=== PATIENT | female | born 2000 | race Caucasian/White ===

== ENCOUNTER 2018-08-01 05:16 | Emergency (ER) | payer OTHER ==
[~2018-08-01] VITALS: Ht 167.6 cm; Wt 71.4 kg
[~2018-08-01 05:16] MED LIST: D-ME118S6 PO; RTPRO NEB
[2018-08-01 05:19] VITALS: Ht 167.6 cm; Wt 71.4 kg
[2018-08-01] MEDS ORDERED: morphine 4 MG/ML VIAL IV STA ×2 (05:33→11:03)
[2018-08-01] MEDS ORDERED: ONDANSETRON 4 MG INJ IV STA (05:33)
--- NOTE | 2018-08-01 05:33 | ERD ---
ER Documentation Chief Complaint Chief Complaint C/O RLQ AP W/ NAUSEA SINCE 1AM HPI This is a 18-year-old female presents to the emergency department with complaints of right lower abdominal pain that started at 1 AM. Stated that this woke her up. Pain was described as sharp. Also complains of nausea without vomiting. Also complains of difficulty walking due to pain. Her last bowel movement was yesterday and it was normal. LMP: 07/15/2018. . Denies headache, head injury, loss of consciousness, dizziness, neck pain, neck stiffness, throat pain, difficulty swallowing, difficulty breathing lying flat, shoulder pain, chest pain, back pain, vomiting, constipation, diarrhea, urinary symptoms, or possibility being , loss of bowel and bladder control, trauma, injury, falls, difficulty walking due to pain, numbness or tingling sensation, calf pain, recent travel, recent major surgery in the last 3 weeks, calf pain, recent long travel, recent exposure to any illness, recent antibiotic use in the last 3 months, fever, chills, seizures. Past medical history: Surgical history: Social: Denies smoking, use of alcoholic beverages, use of illegal drugs. ROS All systems reviewed and are negative except as per history of present illness. Allergies Allergies: Coded Allergies: No Known Allergy (Unverified , 08/01/18) Physical Exam Vitals Vital Signs Date Temp Pulse Resp B/P (MAP) Pulse Ox O2 O2 Flow FiO2 Time Delivery Rate 08/01/18 98.3 90 18 113/71 100 Room Air 09:56 (85) Physical Exam Const: No acute distress Head: Atraumatic Eyes: Normal Conjunctiva ENT: Normal External Ears, Nose and Mouth. Neck: Full range of motion. No meningismus. Resp: Clear to auscultation bilaterally Cardio: Regular rate and rhythm, no murmurs Abd: Soft, non tender, non distended. Normal bowel sounds. Negative Iverson sign. Has right lower abdominal tenderness. Has rebound tenderness to the right lower quadrant. Positive psoas sign. Developed right lower abdominal pain after jumping twice. No CVA tenderness. Difficulty walking due to pain. Skin: No petechiae or rashes. No skin tenting. No signs of severe dehydration. Back: No midline or flank tenderness Ext: No cyanosis, or edema Neur: Awake and alert. No neurological deficits. Psych: Normal Mood and Affect Result Diagram: 3/22/19 0600 08/01/18 0600 Results 24 hrs Laboratory Tests Test 08/01/18 06:00 08/01/18 06:24 White Blood Count 15.1 10^3/ul Red Blood Count 4.18 10^6/ul Hemoglobin 10.7 g/dl Hematocrit 34.5 % Mean Corpuscular Volume 82.5 fl Mean Corpuscular Hemoglobin 25.6 pg Mean Corpuscular Hemoglobin Concent 31.0 g/dl Red Cell Distribution Width 14.1 % Platelet Count 232 10^3/UL Mean Platelet Volume 10.5 fl Immature Granulocytes % 0.400 % Neutrophils % 79.5 % Lymphocytes % 9.9 % Monocytes % 9.7 % Eosinophils % 0.2 % Basophils % 0.3 % Nucleated Red Blood Cells % 0.0 /100WBC Immature Granulocytes # 0.060 10^3/ul Neutrophils # 12.0 10^3/ul Lymphocytes # 1.5 10^3/ul Monocytes # 1.5 10^3/ul Eosinophils # 0.0 10^3/ul Basophils # 0.0 10^3/ul Nucleated Red Blood Cells # 0.0 10^3/ul Urine Color YELLOW Urine Clarity CLOUDY Urine pH 5.0 Urine Specific Lydia 1.028 Urine Ketones 1+ mg/dL Urine Nitrite NEGATIVE mg/dL Urine Bilirubin NEGATIVE mg/dL Urine Urobilinogen NEGATIVE mg/dL Urine Leukocyte Esterase 1+ Bryan/ul Urine Microscopic RBC 4 /HPF Urine Microscopic WBC 6 /HPF Urine Squamous Epithelial Cells MANY /HPF Urine Bacteria FEW /HPF Urine Mucus FEW /HPF Urine Hemoglobin NEGATIVE mg/dL Urine Glucose NEGATIVE mg/dL Urine Total Protein NEGATIVE mg/dl Sodium Level 140 mmol/L Potassium Level 3.9 mmol/L Chloride Level 105 mmol/L Carbon Dioxide Level 21 mmol/L Anion Gap 14 Blood Urea Nitrogen 12 mg/dl Creatinine 0.64 mg/dl Est Glomerular Filtrat Rate mL/min > 60 mL/min Glucose Level 98 mg/dl Calcium Level 9.0 mg/dl Total Bilirubin 0.5 mg/dl Direct Bilirubin 0.00 mg/dl Indirect Bilirubin 0.5 mg/dl Aspartate Amino Transf (AST/SGOT) 13 IU/L Alanine Aminotransferase (ALT/SGPT) < 6 IU/L Alkaline Phosphatase 67 IU/L Total Protein 7.3 g/dl Albumin 4.3 g/dl Globulin 3.00 g/dl Albumin/Globulin Ratio 1.43 Amylase Level 63 U/L Lipase 95 U/L POC Beta HCG, Qualitative NEGATIVE Current Medications Medications Dose Sig/Blake Start Time Status Last (Trade) Ordered Route PRN Stop Time Admin Dose Reason Admin Morphine 4 mg ONCE STAT 08/01/18 DC 08/01/18 Sulfate IV 05:33 06:29 (morphine) 08/01/18 05:37 Ondansetron 4 mg ONCE STAT 08/01/18 DC 08/01/18 HCl (Zofran IV 05:33 06:29 Inj) 08/01/18 05:37 IV Flush 10 ml STK-MED 08/01/18 DC 08/01/18 (NS 10 ml) ONCE .ROUTE 06:48 07:18 08/01/18 06:49 Sodium 100 ml @ ud STK-MED 08/01/18 DC 08/01/18 Chloride ONCE .ROUTE 06:48 07:20 08/01/18 06:49 Iohexol 150 ml STK-MED 08/01/18 DC 08/01/18 (Omnipaque ONCE .ROUTE 06:48 07:20 300mg/ ml) 08/01/18 06:49 Piperacillin 100 ml @ ONCE ONCE 08/01/18 DC 08/01/18 Sod/ 200 mls/hr IVPB 08:00 07:54 Tazobactam 08/01/18 08:29 Sod Morphine 4 mg ONCE STAT 08/01/18 DC 08/01/18 Sulfate IV 11:03 11:06 (morphine) 08/01/18 11:04 Procedures/MDM Diagnostic tests: POC urine : Urinalysis: Culture urine: Sent. Blood works: Influenza a and B: CT of the abdomen and pelvis with IV contrast: Treatment: Saline lock. Normal saline IV bolus. Morphine IV. Zofran IV. Re-evaluation: Differential diagnosis This case was endorsed with Jojo Hernandez PA-C who agreed to continue care. DIAGNOSTIC IMAGING REPORT Patient: NEVA IRBY : 2000 Age: 18 Sex: F MR #: [id number] DOS: 08/01/18 0533 Ordering MD: GANGA OAKES NP Location: [facility] Room/Bed: PROCEDURE: CT Abdomen and Pelvis with contrast. CLINICAL INDICATION: TECHNIQUE: CT scan of the abdomen and pelvis with contrast was performed on a multi-detector high-resolution CT scanner. The patient was scanned following intravenous administration of 90 mL Isovue-370 . Coronal and sagittal reforma tted images obtained from the axial source images. Images were reviewed on a high-resolution PACS workstation. Exam CTDI mGy Exam DLP mGy-cm DICOM images are available. One or more of the following dose reduction techniques were utilized: 1.) Automated exposure control 2.) Adjustment of the mA +/- kV according to patient's size 3.) Use of iterative reconstruction technique. COMPARISON: None. FINDINGS: CT abdomen: LOWER THORAX: Lung bases are clear. LIVER AND GALLBLADDER: Normal. SPLEEN: Normal. PANCREAS: Normal. ADRENAL GLANDS: Normal. KIDNEYS: The kidneys enhance symmetrically. There is focal cortical scarring at the upper poles of both kidneys. No hydronephrosis, no evidence of an obstructing stone in either ureter. VASCULATURE: Negative for aortic aneurysm or dissection. LYMPH NODES: No significant retroperitoneal or mesenteric lymphadenopathy. BOWEL AND MESENTERY: The distal appendix is filled with fluid and dilated to a diameter of 13 mm. There is associated fat stranding along the margins of the appendix. No extraluminal gas or evidence of an abscess. Several mildly prominent reactive right lower quadrant lymph nodes. Stomach and small bowel are unremarkable. CT pelvis: The urinary bladder is unremarkable. Uterus and adnexal structures appear normal for age. There is a small amount of free fluid in the pelvis. Bones: Regional bones and superficial soft tissues are grossly unremarkable for age. IMPRESSION: 1. Above findings are consistent with acute appendicitis. No evidence of perforation. 2. Focal cortical scarring at the upper poles of both kidneys. ER Course: Dr. Del Cid will help facilitate admission. Zosyn given in ED. Pain is controlled. Patient is stable at the time of admission. She is aware of diagnosis. MDM: 18-year-old female presenting with abdominal pain. This is a passed on from ESTRADA Farfan. Patient has findings consistent with acute appendicitis. She will be admitted for surgical intervention. Patient stable at time of admission. Departure Diagnosis: Primary Impression: Abdominal pain Additional Impression: Appendicitis Condition: Fair GANGA OAKES Aug 01, 2018 05:33 JOAQUINA HERNANDEZ PA-C Aug 01, 2018 07:48
[2018-08-01] MEDS ORDERED: SOD CHLORIDE 0.9% 100 ML ONE (06:48)
[2018-08-01] MEDS ORDERED: IOHEXOL 300MG/ML 150 ML BTL ONE (06:48)
[2018-08-01] MEDS ORDERED: PIPER-TAZO 3.375 GM IV (PMX) 100 ML IVPB ONE (08:00)
[2018-08-01 09:56] VITALS: BP 113/71; PULSE 90; RESP 18
== END 2018-08-01 11:33 | disposition short-term general hospital (02) ==
LOC: FTE 05:16
DX: K37 Unspecified appendicitis (principal)
CPT/HCPCS: 74177; 80053; 81001; 81025; 82150; 83690; 85025; 87086; 87400; J2270; J2405; J2543; Q9967; Z7610; 96365; 96375; 96376